=== PATIENT | female | born 1935 | race Caucasian/White ===

== ENCOUNTER 2017-02-06 09:53 | Emergency (ER) | payer MEDICARE ==
--- NOTE | 2017-02-06 10:42 | RAD ---
TWO VIEWS CHEST 02/06/17 PROVIDED CLINICAL HISTORY: Cough. FINDINGS: Comparison is made with the study dated 04/01/13. The cardiac silhouette is upper limits of normal to mildly enlarged. Vascular calcification involves the aortic arch. No focal consolidation, pleural fluid or pneumothorax apparent. Degenerative lechuga es are seen involving the thoracic spine. There is accentuation of the thoracic kyphosis about the t horacolumbar junction likely on the basis of compression deformity seen on prior radiographs. IMPRESSION: Cardiomegaly without evidence for an acute cardiopulmonary process. POS: PATRIZIA
[2017-02-06 11:32] LABS: #Eosinphils 0.3 thou/uL (0.0-0.7); #Lymphocytes 1.2 thou/uL (1.20-3.40); #Monocytes 0.7 thou/uL (0.11-0.59); #Neutrophils 8.5 thou/uL (1.40-6.50); %Basophils 0.2 % (0.0-1.0); %Eosinophils 2.6 % (0.0-10.0); %Lymphocytes 11.4 % (21.0-51.0); %Monocytes 6.5 % (0.0-10.0); Hematocrit 38.6 % (36.0-47.0); Mean Platelet Volume 7.2 fL (7.4-10.4); Red Blood Cell (RBC) Count 4.03 mill/uL (4.20-5.40); White Blood Cell (WBC) Count 10.7 thou/uL (4.8-10.8)
[2017-02-06 11:53] LABS: ALT (SGPT) 16 U/L (8-55); AST (SGOT) 25 U/L (5-34); Alkaline Phosphatase 82 U/L (40-150); Anion Gap 13 mmol/L (10-20); BUN (Urea Nitrogen) 21 mg/dL (9.8-20.1); Bilirubin, Total 0.4 mg/dL (0.2-1.2); CK (CPK) 534 U/L (29-168); Calc. Creatinine Clearance 0 mL/min (70-130); Calcium 9.3 mg/dL (7.8-10.44); Carbon Dioxide 23 mmol/L (23-31); Chloride 103 mmol/L (98-107); Estimated GFR-MDRD 51; Globulin 3.4 g/dL (2.4-3.5); Protein, Total 7.2 g/dL (6.0-8.3)
[2017-02-06 12:03] LABS: Troponin I Less than 0.010 ng/mL (< 0.028)
== END 2017-02-06 12:15 | disposition home or self-care (01) ==
LOC: ERS 09:53
DX: R05 Cough (principal); E11.9 Type 2 diabetes mellitus without complications; I10 Essential (primary) hypertension; E78.00 Pure hypercholesterolemia, unspecified; Z79.82 Long term (current) use of aspirin; Z79.4 Long term (current) use of insulin; Z79.899 Other long term (current) drug therapy
CPT/HCPCS: 36415; 71020; 80053; 82550; 82553; 83880; 84484; 85025

== ENCOUNTER 2019-01-19 13:13 | Emergency (ER) | payer MEDICARE ==
[2019-01-19 14:03] LABS: #Eosinphils 0.1 thou/uL (0.0-0.7); #Lymphocytes 1.4 thou/uL (1.20-3.40); #Monocytes 0.9 thou/uL (0.11-0.59); %Basophils 0.3 % (0.0-1.0); %Eosinophils 1.2 % (0.0-10.0); %Lymphocytes 13.2 % (21.0-51.0); %Monocytes 8.7 % (0.0-10.0); %Neutrophils 76.6 % (42.0-75.0); Hemoglobin 11.9 g/dL (12.0-16.0); Mean Corpuscular HGB CONC 34.3 g/dL (32.0-36.0); Mean Corpuscular Hemoglobin 32.2 pg (27.0-31.0); Platelet Count 264 thou/uL (130-400); RBC Distribution Width 12.5 % (11.5-14.5); Red Blood Cell (RBC) Count 3.69 mill/uL (4.20-5.40); White Blood Cell (WBC) Count 10.4 thou/uL (4.8-10.8)
[2019-01-19 14:25] LABS: ALT (SGPT) 11 U/L (8-55); AST (SGOT) 14 U/L (5-34); Albumin 3.9 g/dL (3.4-4.8); Alkaline Phosphatase 70 U/L (40-110); Anion Gap 14 mmol/L (10-20); BUN (Urea Nitrogen) 23 mg/dL (9.8-20.1); Bilirubin, Total 0.2 mg/dL (0.2-1.2); Calc. Creatinine Clearance 0 mL/min (70-130); Calcium 8.4 mg/dL (7.8-10.44); Carbon Dioxide 17 mmol/L (23-31); Chloride 109 mmol/L (98-107); Estimated GFR-MDRD 39; Globulin 2.7 g/dL (2.4-3.5); Glucose 107 mg/dL (83-110); Potassium 4.6 mmol/L (3.5-5.1); Protein, Total 6.6 g/dL (6.0-8.3); Sodium 135 mmol/L (136-145)
[2019-01-19 15:16] LABS: Bilirubin Negative (Negative); Blood, Urine Trace (Negative); Glucose, Urine (Dipstick) Negative (Negative); Leukocyte Negative (Negative); Nitrite Negative (Negative); Protein, Urine (Dipstick) Negative (Neg-Trace); Urobilinogen 0.2 mg/dL (Less than 2)
[2019-01-19 15:19] LABS: Clarity Hazy (Clear)
[2019-01-19 15:25] LABS: Bacteria/HPF None Seen HPF (None Seen); RBC/HPF None Seen HPF (0-3); Squamous Epithelial 0-3 HPF (0-3); WBC/HPF None Seen HPF (0-3)
--- NOTE | 2019-01-23 14:42 | EKG ---
Test Reason : Blood Pressure : / mmHG Vent. Rate : 071 BPM Atrial Rate : 071 BPM P-R Int : 164 ms QRS Dur : 094 ms QT Int : 394 ms P-R-T Axes : 032 -13 043 degrees QTc Int : 428 ms Normal sinus rhythm Voltage criteria for left ventricular hypertrophy Abnormal ECG Confirmed by BETTINA HELLER DO ([id number]), editor school photograph JESUS MUÑOZ ([id number]) on 01/23/2019 2:42:09 PM Referred By: Confirmed By:BETTINA HELLER DO
== END 2019-01-19 16:59 | disposition home or self-care (01) ==
LOC: ERS 13:13
DX: R30.0 Dysuria (principal); R01.1 Cardiac murmur, unspecified; I10 Essential (primary) hypertension; E11.9 Type 2 diabetes mellitus without complications; E78.00 Pure hypercholesterolemia, unspecified; Z79.82 Long term (current) use of aspirin; Z79.899 Other long term (current) drug therapy
CPT/HCPCS: 36415; 80053; 81003; 81015; 82550; 83880; 84484; 85025; 93005

== ENCOUNTER 2022-04-16 09:19 | Inpatient (IN) | payer MEDICARE ==
[2022-04-16 10:16] LABS: #Eosinphils 0.2 thou/uL (0.0-0.7); #Lymphocytes 0.8 thou/uL (1.20-3.40); #Monocytes 0.9 thou/uL (0.11-0.59); #Neutrophils 9.1 thou/uL (1.40-6.50); %Basophils 0.2 % (0.0-1.0); %Eosinophils 1.5 % (0.0-10.0); %Lymphocytes 6.9 % (21.0-51.0); %Monocytes 8.3 % (0.0-10.0); %Neutrophils 83.1 % (42.0-75.0); Hemoglobin 14.1 g/dL (12.0-16.0); Mean Corpuscular HGB CONC 31.6 g/dL (32.0-36.0); Mean Corpuscular Hemoglobin 31.5 pg (27.0-31.0); Mean Corpuscular Volume 99.7 fl (78.0-98.0); Mean Platelet Volume 8.4 fL (7.4-10.4); Platelet Count 246 10x3/uL (130-400); RBC Distribution Width 13.4 % (11.5-14.5); Red Blood Cell (RBC) Count 4.47 mill/uL (4.20-5.40); White Blood Cell (WBC) Count 10.9 10x3/uL (4.8-10.8)
[2022-04-16 10:23] LABS: ALT (SGPT) 8 U/L (8-55); AST (SGOT) 11 U/L (5-34); Albumin 3.9 g/dL (3.4-4.8); Alkaline Phosphatase 91 U/L (40-110); Anion Gap 15 mmol/L (10-20); BUN (Urea Nitrogen) 81 mg/dL (9.8-20.1); Bilirubin, Total 0.4 mg/dL (0.2-1.2); Calc. Creatinine Clearance 0 mL/min (70-130); Calcium 9.3 mg/dL (7.8-10.44); Carbon Dioxide 13 mmol/L (23-31); Chloride 113 mmol/L (98-107); Estimated GFR 18; Globulin 3.4 g/dL (2.4-3.5); Glucose 203 mg/dL (83-110); Lipase 43 U/L (8-78); Protein, Total 7.3 g/dL (5.8-8.1); Sodium 135 mmol/L (136-145)
[2022-04-16 10:28] LABS: Potassium 6.4 mmol/L (3.5-5.1)
[2022-04-16] MEDS ORDERED: Dextrose 50% Abboject 50 ML SYRINGE ONE (10:46)
[2022-04-16] MEDS ORDERED: Calcium Gluc 4.6 MEQ/10 ML (100 MG/ML) ONE (10:46)
[2022-04-16] MEDS ORDERED: Albuterol Sulfate 2.5 mg/3 ml Neb ONE (10:46)
[2022-04-16] MEDS ORDERED: Insulin Regular 300 UNITS/3 ML VIAL ONE (10:46)
[2022-04-16 10:56] LABS: Actual Bicarbonate (HCO3v) 16 mEq/L (22-28); Base Excess -11.6 mEq/L (-2.0 to +3.0); Calcium, Ionized (venous) 1.23 mmol/L (1.16-1.32); Chloride (VBG) 113 mmol/L (98-106); Hemoglobin (Hb) 14.8 g/dL (11.7-16.1); Sodium 143.7 mmol/L (133-146)
[2022-04-16 10:58] LABS: Potassium (VBG) 6.24 mmol/L (3.70-5.30); pH (venous) 7.18 (7.32-7.43)
[2022-04-16 11:12] LABS: Magnesium 2.8 mg/dL (1.6-2.6)
[2022-04-16] MEDS ORDERED: Sodium Bicarb 50 MEQ/50 ML VIAL ONE ×2 (11:35→12:21)
[2022-04-16 12:28] LABS: ALT (SGPT) Less than 7 U/L (8-55); AST (SGOT) 10 U/L (5-34); Albumin 3.2 g/dL (3.4-4.8); Alkaline Phosphatase 78 U/L (40-110); Anion Gap 14 mmol/L (10-20); BUN (Urea Nitrogen) 80 mg/dL (9.8-20.1); Bilirubin, Total 0.4 mg/dL (0.2-1.2); Calc. Creatinine Clearance 0 mL/min (70-130); Calcium 8.9 mg/dL (7.8-10.44); Carbon Dioxide 15 mmol/L (23-31); Chloride 115 mmol/L (98-107); Estimated GFR 21; Globulin 2.8 g/dL (2.4-3.5); Glucose 232 mg/dL (83-110); Potassium 5.8 mmol/L (3.5-5.1); Sodium 138 mmol/L (136-145)
[2022-04-16] MEDS ORDERED: Dextrose 5% in Water 1,000 ML IV PRN (13:12)
[2022-04-16] MEDS ORDERED: HumaLOG 300 UNITS/3 ML VIAL SC PRN (13:12)
[2022-04-16] MEDS ORDERED: Ondansetron PF 4 MG/2 ML Vial IVP PRN (13:12)
[2022-04-16] MEDS ORDERED: Dextrose 50% Abboject 50 ML SYRINGE SLOW IVP PRN (13:12)
[2022-04-16 13:19] LABS: Actual Bicarbonate (HCO3a) 19.5 mEq/L (22-28); Analyzer IN Cardio ER; Base Excess (BEa) -6.4 mEq/L (-2.0 to +3.0); CO2 Tension 39.8 mmHg (35.0-45.0); Calcium, Ionized (arterial) 1.14 mmol/L (1.12-1.30); Carboxyhemoglobin (COHb) 0.7 gm% (0.0-3.0); Potassium - ABG Lab 5.82 mmol/L (3.70-5.30); pH, Arterial 7.31 (7.35-7.45)
[2022-04-16 13:24] LABS: O2 Tension (PaO2), arterial 23.2 mmHg (> 60.0)
[2022-04-16] MEDS ORDERED: LOKELMA 10 GM PACKET PO SCH (13:30)
[2022-04-16 14:20] LABS: Anion Gap 14 mmol/L (10-20); BUN (Urea Nitrogen) 77 mg/dL (9.8-20.1); Calc. Creatinine Clearance 0 mL/min (70-130); Calcium 8.8 mg/dL (7.8-10.44); Carbon Dioxide 18 mmol/L (23-31); Chloride 115 mmol/L (98-107); Estimated GFR 23; Glucose 164 mg/dL (83-110); Sodium 141 mmol/L (136-145)
[2022-04-16 14:31] LABS: Potassium 6.1 mmol/L (3.5-5.1)
[2022-04-16] MEDS: Brimonidine Tartrate 0.2% Ophth Soln 5 ml Bottle L EYE SCH ×2 (14:38→20:31)
[2022-04-16] MEDS: Sodium Bicarbonate 150 MEQ in Dextrose 5% in Water 1,000 ML IV SCH (14:40)
[2022-04-16] MEDS: FLUoxetine HCl 20 MG CAP PO SCH ×2 (14:42→20:44)
[2022-04-16 16:04] LABS: Bilirubin Negative (Negative); Blood, Urine Negative (Negative); Clarity Clear (Clear); Glucose, Urine (Dipstick) Normal (Negative); Ketone, Urine Negative (Negative); Leukocyte Negative Leu/uL (Negative); Nitrite Negative (Negative); Protein, Urine (Dipstick) Negative (Neg-Trace); Specific Gravity, Urine 1.014 (1.002-1.036); Urobilinogen Normal mg/dL (Less than 2); pH, Urine 5.5 (5.0-9.0)
[2022-04-16 18:43] LABS: Anion Gap 14 mmol/L (10-20); BUN (Urea Nitrogen) 68 mg/dL (9.8-20.1); Calc. Creatinine Clearance 0 mL/min (70-130); Calcium 8.7 mg/dL (7.8-10.44); Carbon Dioxide 19 mmol/L (23-31); Chloride 110 mmol/L (98-107); Estimated GFR 26; Glucose 154 mg/dL (83-110); Sodium 138 mmol/L (136-145)
[2022-04-16 18:54] LABS: Actual Bicarbonate (HCO3a) 19.1 mEq/L (22-28); Analyzer IN Cardio ER; Base Excess (BEa) -5.1 mEq/L (-2.0 to +3.0); CO2 Tension 33.1 mmHg (35.0-45.0); Calcium, Ionized (arterial) 1.19 mmol/L (1.12-1.30); Carboxyhemoglobin (COHb) 0.1 gm% (0.0-3.0); Hemoglobin (Hb) 12.8 g/dL (12.0-16.0); Potassium - ABG Lab 4.72 mmol/L (3.70-5.30); pH, Arterial 7.38 (7.35-7.45)
[2022-04-16 19:00] LABS: ALV-art Gradient 38.355 mmHg (0-20); Puncture Site RBA
[2022-04-16] MEDS: DorzolamidE/Timolol 2%/0.5% Ophth Soln 10 ml Bottle L EYE SCH (20:44)
[2022-04-16] MEDS: Donepezil HCl 5 MG TAB PO SCH (20:44)
[2022-04-16] MEDS ORDERED: Insulin Glargine 30 UNITS/0.3 ML VIAL SC SCH (21:00)
[2022-04-16] MEDS ORDERED: traZODone HCl 50 MG TAB PO SCH (21:00)
[2022-04-16 21:02] LABS: Anion Gap 14 mmol/L (10-20); BUN (Urea Nitrogen) 59 mg/dL (9.8-20.1); Calc. Creatinine Clearance 0 mL/min (70-130); Calcium 8.5 mg/dL (7.8-10.44); Carbon Dioxide 19 mmol/L (23-31); Chloride 111 mmol/L (98-107); Estimated GFR 29; Glucose 155 mg/dL (83-110); Potassium 5.1 mmol/L (3.5-5.1); Sodium 139 mmol/L (136-145)
[2022-04-16] MEDS ORDERED: traZODone HCl 50 MG TAB ONE (21:52)
[2022-04-17] MEDS: Sodium Bicarbonate 150 MEQ in Dextrose 5% in Water 1,000 ML IV SCH (06:45)
[2022-04-17 07:36] LABS: Hemoglobin 12.1 g/dL (12.0-16.0); Mean Corpuscular HGB CONC 32.1 g/dL (32.0-36.0); Mean Corpuscular Hemoglobin 31.7 pg (27.0-31.0); Mean Corpuscular Volume 98.7 fl (78.0-98.0); Mean Platelet Volume 7.8 fL (7.4-10.4); Platelet Count 223 10x3/uL (130-400); RBC Distribution Width 13.4 % (11.5-14.5); Red Blood Cell (RBC) Count 3.83 mill/uL (4.20-5.40); White Blood Cell (WBC) Count 7.1 10x3/uL (4.8-10.8)
[2022-04-17 07:57] LABS: Anion Gap 12 mmol/L (10-20); BUN (Urea Nitrogen) 50 mg/dL (9.8-20.1); Calc. Creatinine Clearance 0 mL/min (70-130); Calcium 8.2 mg/dL (7.8-10.44); Carbon Dioxide 23 mmol/L (23-31); Chloride 109 mmol/L (98-107); Estimated GFR 34; Glucose 161 mg/dL (83-110); Potassium 4.7 mmol/L (3.5-5.1); Sodium 139 mmol/L (136-145)
[2022-04-17 08:26] LABS: Eosinophils 1 % (0-10); Lymphocytes 14 % (21-51); MDiff Complete? YES; Monocytes 10 % (0-10); Neutrophil 75 % (42-75); Platelet Morphology Comment Appears Adequate; RBC Morphology Normal
[2022-04-17] MEDS ORDERED: Electrolyte Replacement Protocol 1 EACH FS SCH (08:30)
[2022-04-17] MEDS ORDERED: Amlodipine 10 MG TAB PO SCH (09:00)
[2022-04-17] MEDS ORDERED: Aspirin Chewable 81 MG TAB ONE (10:08)
[2022-04-17] MEDS: Aspirin 81 mg Enteric Coated Tablet PO SCH (10:17)
[2022-04-17] MEDS: Brimonidine Tartrate 0.2% Ophth Soln 5 ml Bottle L EYE SCH ×3 (10:19→21:47)
[2022-04-17] MEDS: Sodium Chloride 0.9% 1,000 ML IV SCH (10:21)
[2022-04-17] MEDS: DorzolamidE/Timolol 2%/0.5% Ophth Soln 10 ml Bottle L EYE SCH ×2 (10:41→21:48)
[2022-04-17 11:22] LABS: Troponin I 0.013 ng/mL (< 0.028)
[2022-04-17] MEDS ORDERED: HumaLOG 300 UNITS/3 ML VIAL ONE (12:25)
[2022-04-17] MEDS: HumaLOG 300 UNITS/3 ML VIAL SC PRN (12:27)
[2022-04-17 14:41] LABS: Troponin I 0.022 ng/mL (< 0.028)
[2022-04-17] MEDS ORDERED: Acetaminophen 325 MG TAB ONE (15:12)
[2022-04-17] MEDS: Acetaminophen 325 MG TAB PO PRN (15:13)
[2022-04-17] MEDS ORDERED: traZODone HCl 50 MG TAB PO SCH (21:00)
[2022-04-17] MEDS: Donepezil HCl 5 MG TAB PO SCH (21:47)
[2022-04-17] MEDS: Heparin 5,000 UNITS/ML VIAL SC SCH (21:48)
[2022-04-18 05:06] LABS: Anion Gap 14 mmol/L (10-20); BUN (Urea Nitrogen) 38 mg/dL (9.8-20.1); Calc. Creatinine Clearance 0 mL/min (70-130); Calcium 8.2 mg/dL (7.8-10.44); Carbon Dioxide 20 mmol/L (23-31); Chloride 110 mmol/L (98-107); Estimated GFR 44; Glucose 154 mg/dL (83-110); Magnesium 2.2 mg/dL (1.6-2.6); Phosphorus 2.8 mg/dL (2.3-4.7); Potassium 4.9 mmol/L (3.5-5.1); Sodium 139 mmol/L (136-145)
[2022-04-18] MEDS: Aspirin 81 mg Enteric Coated Tablet PO SCH (09:28)
[2022-04-18] MEDS: Acetaminophen 325 MG TAB PO PRN ×2 (09:28→14:38)
[2022-04-18] MEDS: DorzolamidE/Timolol 2%/0.5% Ophth Soln 10 ml Bottle L EYE SCH ×2 (09:30→21:28)
[2022-04-18] MEDS: Brimonidine Tartrate 0.2% Ophth Soln 5 ml Bottle L EYE SCH ×3 (09:31→21:28)
[2022-04-18] MEDS: Heparin 5,000 UNITS/ML VIAL SC SCH ×2 (09:32→21:29)
[2022-04-18] MEDS: HumaLOG 300 UNITS/3 ML VIAL SC PRN (13:14)
[2022-04-18] MEDS: Sodium Chloride 0.9% 1,000 ML IV SCH (14:38)
[2022-04-18] MEDS: Donepezil HCl 5 MG TAB PO SCH (21:28)
[2022-04-19] MEDS: Sodium Chloride 0.9% 1,000 ML IV SCH (03:58)
[2022-04-19 05:11] LABS: Anion Gap 10 mmol/L (10-20); BUN (Urea Nitrogen) 25 mg/dL (9.8-20.1); Calc. Creatinine Clearance 0 mL/min (70-130); Calcium 8.1 mg/dL (7.8-10.44); Carbon Dioxide 22 mmol/L (23-31); Chloride 112 mmol/L (98-107); Estimated GFR 51; Glucose 137 mg/dL (83-110); Potassium 4.8 mmol/L (3.5-5.1); Sodium 139 mmol/L (136-145)
[2022-04-19] MEDS: Aspirin 81 mg Enteric Coated Tablet PO SCH (09:55)
[2022-04-19] MEDS: Heparin 5,000 UNITS/ML VIAL SC SCH (09:55)
[2022-04-19] MEDS: DorzolamidE/Timolol 2%/0.5% Ophth Soln 10 ml Bottle L EYE SCH (09:57)
[2022-04-19] MEDS: Brimonidine Tartrate 0.2% Ophth Soln 5 ml Bottle L EYE SCH ×2 (09:57→14:55)
[2022-04-19] MEDS: HumaLOG 300 UNITS/3 ML VIAL SC PRN (12:23)
[2022-04-19 17:39] VITALS: BP 144/65; TEMP 97.2
== END 2022-04-19 20:08 | DRG 178 ==
LOC: ERS 09:19 → ERHOLD 12:32 → 2NO 04-17 15:19
PROVIDERS: ADMIT Internal Medicine; ATTEND Internal Medicine
PROC: 8E0ZXY6 Isolation (ICD-10-PCS; principal; 2022-04-16)
DX: U07.1 COVID-19 (principal); A08.39 Other viral enteritis; N17.9 Acute kidney failure, unspecified; N18.4 Chronic kidney disease, stage 4 (severe); E87.1 Hypo-osmolality and hyponatremia; E87.20 Acidosis, unspecified; E87.5 Hyperkalemia; E86.0 Dehydration; R19.7 Diarrhea, unspecified; E11.22 Type 2 diabetes mellitus with diabetic chronic kidney disease; F03.90 Unspecified dementia, unspecified severity, without behavioral disturbance, psychotic disturbance, mood disturbance, and anxiety; K80.20 Calculus of gallbladder without cholecystitis without obstruction; H54.40 Blindness, one eye, unspecified eye; E78.5 Hyperlipidemia, unspecified; D63.1 Anemia in chronic kidney disease; Z60.2 Problems related to living alone; Z90.49 Acquired absence of other specified parts of digestive tract; Z98.51 Tubal ligation status; Z98.890 Other specified postprocedural states
CPT/HCPCS: 36415; 36416; 36600; 71045; 74176; 76705; 80048; 80053; 82805; 83690; 83735; 83880; 84100; 84484; 85025; 87077; 87086; 87186; 93005; 93010; 96374; 96375; J0610; J1644; J1815; J2405; J7050; J7070; J7611; J7999; U0003; U0005

== ENCOUNTER 2022-08-05 15:21 | Inpatient (IN) | payer OTHER ==
[2022-08-05 15:27] VITALS: BMI 33.1
[2022-08-05] MEDS ORDERED: Glycopyrrolate 0.4 MG/ 2 ML VIAL SLOW IVP PRN (15:41)
[2022-08-05] MEDS ORDERED: Lorazepam 2 MG/ML VIAL SLOW IVP PRN (15:44)
[2022-08-05] MEDS ORDERED: Acetaminophen 650 MG Suppository PR PRN (15:45)
[2022-08-05] MEDS ORDERED: Promethazine HCl 25 MG SUPP PR PRN (15:45)
[2022-08-05] MEDS ORDERED: Ondansetron PF 4 MG/2 ML Vial IVP PRN (15:45)
[2022-08-05] MEDS ORDERED: Scopolamine 1.5 mg/72 hour Patch TOP PRN (15:45)
[2022-08-05] MEDS ORDERED: Bisacodyl 10 MG SUPP PR PRN (15:45)
[2022-08-05] MEDS ORDERED: Haloperidol Lactate 5 MG/ML VIAL SLOW IVP PRN (15:45)
[2022-08-05] MEDS: Morphine 4 MG/ML VIAL SLOW IVP PRN ×2 (15:47→16:36)
[2022-08-05] MEDS: Lorazepam 2 MG/ML VIAL SLOW IVP PRN ×2 (16:02→17:05)
[2022-08-05 20:30] VITALS: BP 111/72; TEMP 98.2
== END 2022-08-06 00:52 | disposition expired | DRG 951 ==
LOC: CCU 15:21 → T4-A 17:51
PROVIDERS: ADMIT Family Medicine; ATTEND Family Medicine
DX: Z51.5 Encounter for palliative care (principal); I21.4 Non-ST elevation (NSTEMI) myocardial infarction; J96.90 Respiratory failure, unspecified, unspecified whether with hypoxia or hypercapnia; J69.0 Pneumonitis due to inhalation of food and vomit; I42.9 Cardiomyopathy, unspecified; I46.9 Cardiac arrest, cause unspecified; I25.10 Atherosclerotic heart disease of native coronary artery without angina pectoris; E11.9 Type 2 diabetes mellitus without complications; F03.90 Unspecified dementia, unspecified severity, without behavioral disturbance, psychotic disturbance, mood disturbance, and anxiety; I50.9 Heart failure, unspecified; E88.09 Other disorders of plasma-protein metabolism, not elsewhere classified
CPT/HCPCS: J2060; J2270